=== PATIENT | male | born 1945 | race Caucasian/White ===

== ENCOUNTER 2024-08-22 12:05 | Emergency (ER) | payer OTHER ==
[~2024-08-22] VITALS: Ht 182.9 cm; Wt 88.0 kg
[2024-08-22] MEDS ORDERED: Albuterol 2.5 MG/3 ML VIAL INH SCH (12:30)
[2024-08-22] MEDS ORDERED: Ipratropium/Albuterol SulF 2.5-0.5MG/3 ML Amp INH ONE (12:30)
[2024-08-22 12:50] LABS: BASOPHILS ABSOLUTE AUTO 0.05 K/mm3 (0.00-0.23); BASOPHILS PERCENT AUTO 1 % (0-2); EOSINOPHILS ABSOLUTE AUTO 0.23 K/mm3 (0.00-0.68); EOSINOPHILS PERCENT AUTO 5 % (0-6); Hematocrit 41.6 % (37.0-53.0); Hemoglobin 14.3 g/dL (13.5-17.5); IMMATURE GRAN ABSOLUTE AUTO 0.01 K/mm3 (0.00-0.10); IMMATURE GRAN PERCENT AUTO 0 % (0-1); LYMPHOCYTES ABSOLUTE AUTO 0.94 K/mm3 (0.84-5.20); LYMPHOCYTES PERCENT AUTO 22 % (21-46); MONOCYTES ABSOLUTE AUTO 0.52 K/mm3 (0.16-1.47); MONOCYTES PERCENT AUTO 12 % (4-13); Mean Corpuscular HGB 33.6 pg (26.0-34.0); Mean Corpuscular HGB Conc 34.4 g/dL (31.5-36.5); Mean Corpuscular Volume 98 fL (80-100); Mean Platelet Volume 8.7 fL (9.1-12.4); NEUTROPHILS ABSOLUTE AUTO 2.57 K/mm3 (1.96-9.15); NEUTROPHILS PERCENT AUTO 60 % (41-73); Platelet Count 182 K/mm3 (150-400); RDW Coefficient Variation 12.3 % (11.7-14.2); Red Blood Cell Count 4.25 M/mm3 (4.30-5.90); White Blood Cell Count 4.32 K/mm3 (4.00-11.30)
[2024-08-22 13:18] LABS: Albumin, Blood 3.9 g/dL (3.4-5.0); Albumin/Globulin Ratio 1.5 (0.8-1.8); Bilirubin, Total 0.4 mg/dL (0.1-1.0); Bun/Creatinine Ratio 24.1 (12.0-20.0); Calcium, Blood 8.6 mg/dL (8.5-10.1); Creatinine, Blood 0.58 mg/dL (0.60-1.20); Globulin, Blood 2.6 g/dL (2.2-4.0); Potassium, Blood 3.9 mmol/L (3.5-5.5); Total Protein, Blood 6.5 g/dL (6.4-8.2)
[2024-08-22] MEDS ORDERED: ALBU90OI INH (13:45)
[2024-08-22] MEDS ORDERED: AMLO10 PO (13:45)
[2024-08-22] MEDS ORDERED: Aspir 8181 MG PO (13:46)
[2024-08-22] MEDS ORDERED: ATOR80 PO (13:47)
[2024-08-22] MEDS ORDERED: CARB200 PO (13:47)
[2024-08-22] MEDS ORDERED: Carvedilol12.5 MG PO (13:48)
[2024-08-22] MEDS ORDERED: ERGO400 PO (13:48)
[2024-08-22] MEDS ORDERED: [UNRECOGNIZED DRUG - CODE] PO (13:48)
[2024-08-22] MEDS ORDERED: FLUTICASONE-SA1 EAC1 INH (13:49)
[2024-08-22] MEDS ORDERED: FINA5 PO (13:49)
[2024-08-22] MEDS ORDERED: Furosemide20 MG PO (13:50)
[2024-08-22] MEDS ORDERED: HYDRA50 PO (13:51)
[2024-08-22] MEDS ORDERED: LIDO700A20 TOP (13:52)
[2024-08-22] MEDS ORDERED: Isosorbide Mono30 MG PO (13:52)
[2024-08-22] MEDS ORDERED: LOSA50 PO (13:53)
[2024-08-22] MEDS ORDERED: ALDACTONE100 MG PO (13:53)
[2024-08-22] MEDS ORDERED: TRAZ50 PO (13:54)
[2024-08-22] MEDS ORDERED: ACTEMRA162 MG/0.1 SQ (13:54)
[2024-08-22] MEDS ORDERED: TAMS.4ER PO (13:54)
[2024-08-22] MEDS ORDERED: PredniSONE 20 MG Tab PO ONE (14:25)
[2024-08-22] MEDS ORDERED: PRED20 PO (14:28)
== END 2024-08-22 14:55 | disposition home or self-care (01) ==
LOC: ER 12:05
PROVIDERS: Student in an Organized Health Care Education/Training Program
DX: J44.1 Chronic obstructive pulmonary disease with (acute) exacerbation (principal); R00.1 Bradycardia, unspecified; I11.0 Hypertensive heart disease with heart failure; I50.9 Heart failure, unspecified; Z87.891 Personal history of nicotine dependence; Z88.5 Allergy status to narcotic agent; Z88.8 Allergy status to other drugs, medicaments and biological substances; Z79.82 Long term (current) use of aspirin; Z79.899 Other long term (current) drug therapy
CPT/HCPCS: 71046; 80053; 83735; 83880; 84484; 85025; 93005; 93010; 99285-25; J7512

== ENCOUNTER → 2025-02-21 | Outpatient (CLI) | payer OTHER ==
[~2025-02-21] MED LIST: ACTEMRA162 MG/0.1 SQ; ALBU90OI INH; ALDACTONE100 MG PO; AMLO10 PO; ATOR80 PO; Aspir 8181 MG PO; CARB200 PO; Carvedilol12.5 MG PO; ERGO400 PO; FINA5 PO; FLUTICASONE-SA1 EAC1 INH; Furosemide20 MG PO; HYDRA50 PO; Isosorbide Mono30 MG PO; LIDO700A20 TOP; LOSA50 PO; PRED20 PO; TAMS.4ER PO; TRAZ50 PO; [UNRECOGNIZED DRUG - CODE] PO
[2025-02-21 20:21] LABS: Microalbumin, Urine Quant. 5.99 mg/L (0.000-20.000); Protein, Urine Quantitative 11.1 mg/dL (0.0-11.9)
== END | disposition home or self-care (01) ==
LOC: LAB SHORT 13:03 → LAB 13:03
PROVIDERS: Internal Medicine Nephrology
DX: N18.30 Chronic kidney disease, stage 3 unspecified (principal); D63.1 Anemia in chronic kidney disease; N25.81 Secondary hyperparathyroidism of renal origin; E55.9 Vitamin D deficiency, unspecified; E78.00 Pure hypercholesterolemia, unspecified; R76.9 Abnormal immunological finding in serum, unspecified; R94.5 Abnormal results of liver function studies; R94.6 Abnormal results of thyroid function studies
CPT/HCPCS: 81050; 82043; 82570; 84156